=== PATIENT | female | born 1995 | race African-American/Black ===

== ENCOUNTER 2023-06-14 23:45 | Inpatient (IN) | payer OTHER ==
[~2023-06-14] VITALS: Ht 165.1 cm; Wt 75.9 kg
[2023-06-14] MEDS ORDERED: PROPOFOL 1,000 MG/100 ML VIAL As Ordered ONE (23:53)
[2023-06-15] VITALS (15 sets, daily range): BP systolic 83–122; BP diastolic 44–74; TEMP 95.4–99.5; O2SAT 100
[2023-06-15] MEDS: NS 1,000 ML IV ONE
[2023-06-15 00:24] LABS: ABG BASE EXCESS -9.9 (-2.0-2.0); ABG HCO3 15.7 MMOL/L (22.0-26.0); ABG O2 SATURATION 98.8 % (95.0-99.0); ABG PARTIAL PRESSURE CO2 33.3 mmHg (35.0-45.0); ABG PARTIAL PRESSURE O2 192.1 mmHg (75.0-100.0); ABG STANDARD HCO3 16.6 MMOL/L. (22.0-26.0); ABG TOTAL CO2 16.7 MMOL/L (22.0-29.0)
[2023-06-15] MEDS: ETOMIDATE INJ 20MG/10ML VIAL IV ONE (00:30)
[2023-06-15] MEDS: ROCURONIUM BROMIDE 50MG/5ML VIAL IV ONE (00:30)
[2023-06-15] MEDS: propofoL 1,000 MG in IV 1 EA IV SCH ×2 (00:45→06:39)
[2023-06-15 00:46] LABS: AMPHETAMINES LEVEL URINE NEGATIVE (NEGATIVE)
[2023-06-15 00:47] LABS: BARBITURATES URINE NEGATIVE (NEGATIVE); BASO % 0.4 % (0.0-1.0); COCAINE METABOLITE URINE NEGATIVE (NEGATIVE); EOS # 0.1 10^3/uL (0.0-0.5); EOS % 0.9 % (0.0-3.0); HEMATOCRIT 33.5 % (36.0-47.0); HEMOGLOBIN 11.1 g/dl (12.0-15.5); LYMPH # 1.6 10^3/uL (1.5-5.0); LYMPH % 24.5 % (24.0-44.0); MEAN CORPUSCULAR HEMOGLOBIN 30.3 pg (27.0-33.0); MEAN CORPUSCULAR HGB CONC 33.1 g/dl (32.0-36.5); MEAN CORPUSCULAR VOLUME 91.5 fl (80.0-96.0); METHADONE URINE NEGATIVE (NEGATIVE); MONO # 0.4 10^3/uL (0.0-0.8); MONO % 5.2 % (2.0-8.0); NEUTROPHILS # 4.6 10^3/uL (1.5-8.5); NEUTROPHILS % 68.7 % (36.0-66.0); OPIATES URINE NEGATIVE (NEGATIVE); PHENCYCLIDINE URINE NEGATIVE (NEGATIVE); RED BLOOD COUNT 3.66 10^6/uL (4.00-5.40); WHITE BLOOD COUNT 6.7 10^3/uL (4.0-10.0)
[2023-06-15 00:48] LABS: BENZODIAZEPINES URINE POSITIVE (NEGATIVE); CANNABINOIDS URINE POSITIVE (NEGATIVE)
[2023-06-15] MEDS: ROCURONIUM BROMIDE 50MG/5ML VIAL IV PRN (01:04)
[2023-06-15 01:06] LABS: ETHYL ALCOHOL (ETHANOL) 0.219 % (0.000-0.010)
[2023-06-15 01:07] LABS: SALICYLATE LEVEL < 3.0 MG/DL (<30)
[2023-06-15 01:08] LABS: ALBUMIN 3.9 G/DL (3.2-5.2); ALKALINE PHOSPHATASE 52 U/L (46-116); ALT/SGPT 17 U/L (7.0-40); AST/SGOT 20 U/L (<34); BILIRUBIN,DIRECT < 0.1 MG/DL (<0.4); BILIRUBIN,TOTAL 0.4 MG/DL (0.3-1.2); BLOOD UREA NITROGEN 10 MG/DL (9-23); CALCIUM LEVEL 7.9 MG/DL (8.5-10.1); CARBON DIOXIDE LEVEL 16 MMOL/L (20-31); CHLORIDE LEVEL 110 MMOL/L (98-107); CK-MB VALUE MASS 1.4 NG/ML (<3.6); CREATININE FOR GFR 0.75 MG/DL (0.55-1.30); GLOMERULAR FILTRATION RATE > 60.0 (>60); GLUCOSE, FASTING 92 MG/DL (60-100); POTASSIUM SERUM 3.8 MMOL/L (3.5-5.1); SODIUM LEVEL 141 MMOL/L (136-145); TOTAL PROTEIN 6.8 G/DL (5.7-8.2)
[2023-06-15] MEDS: DEXMEDETOMIDINE IV ONE (01:10)
[2023-06-15] MEDS: BOOSTRIX VACCINE (TETANUS/DIPHTH/ACEL. PERTUSSIS) 0.5ML SYR IM ONE (01:20)
[2023-06-15 01:25] LABS: CPK CREATINE PHOSPHOKINASE 238 U/L (34-145); MB/CK RELATIVE INDEX 0.58 (< OR =4)
[2023-06-15] MEDS: dexmedeTOMidine 200 MCG in IV 1 EA IV SCH (01:31)
[2023-06-15 01:38] LABS: ABG BASE EXCESS -7.6 (-2.0-2.0); ABG HCO3 16.1 MMOL/L (22.0-26.0); ABG O2 SATURATION 98.2 % (95.0-99.0); ABG PARTIAL PRESSURE CO2 27.7 mmHg (35.0-45.0); ABG PARTIAL PRESSURE O2 137.1 mmHg (75.0-100.0); ABG STANDARD HCO3 18.3 MMOL/L. (22.0-26.0); ABG pH (ARTERIAL) 7.383 UNITS (7.350-7.450)
[2023-06-15] MEDS ORDERED: MIDAZOLAM 5MG/ML 1ML VIAL As Ordered ONE (01:57)
[2023-06-15] MEDS: MIDAZOLAM INJ 2MG/2ML VIAL IV ONE ×2 (02:00→03:25)
[2023-06-15] MEDS: ceFAZolin SOD 2 GM in IV 1 EA IV ONE (02:22)
[2023-06-15] MEDS ORDERED: ISOVUE-370 76% 100ML VIAL As Ordered ONE (02:52)
[2023-06-15] MEDS: MIDAZOLAM 100MG/100ML-0.9%NACL 100 MG in IV 1 EA IV SCH ×2 (03:30→06:37)
[2023-06-15] MEDS ORDERED: HOME MED LIST COMPLETE! XX SCH (05:35)
[2023-06-15] MEDS: MIDAZOLAM INJ 2MG/2ML VIAL IV PRN ×2 (05:39→08:47)
[2023-06-15] MEDS: PIPERACILLIN/TAZOBACTAM SOD 4.5 GM in D5W MINI-BAG PLUS 50 ML IV SCH (05:59)
[2023-06-15] MEDS: ENOXAPARIN 40MG/0.4ML SYRINGE (J1650 PER 10MG) SC SCH (08:35)
[2023-06-15 13:17] LABS: BLOOD UREA NITROGEN 8 MG/DL (9-23); CALCIUM LEVEL 7.8 MG/DL (8.5-10.1); CARBON DIOXIDE LEVEL 23 MMOL/L (20-31); CHLORIDE LEVEL 114 MMOL/L (98-107); CREATININE FOR GFR 0.73 MG/DL (0.55-1.30); GLOMERULAR FILTRATION RATE > 60.0 (>60); GLUCOSE, FASTING 90 MG/DL (60-100); POTASSIUM SERUM 3.7 MMOL/L (3.5-5.1); SODIUM LEVEL 143 MMOL/L (136-145)
[2023-06-15] MEDS: MULTIVITAMIN -ADULT INJECTION 10 ML, THIAMINE INJection 100 MG, FOLIC ACID 1 MG in NS 1... IV ONE (14:41)
[2023-06-15 17:35] LABS: PLATELET COUNT, AUTOMATED 235 10^3/uL (150-450)
== END 2023-06-15 18:47 | disposition home or self-care (01) | DRG 133 ==
LOC: M ED 23:45 → M ED INP 06-15 05:02 → M ICU 06-15 06:01
PROVIDERS: ADMIT Internal Medicine Pulmonary Disease; ATTEND Student in an Organized Health Care Education/Training Program
DX: J96.00 Acute respiratory failure, unspecified whether with hypoxia or hypercapnia (principal); I27.20 Pulmonary hypertension, unspecified; R00.1 Bradycardia, unspecified; G43.909 Migraine, unspecified, not intractable, without status migrainosus; F12.90 Cannabis use, unspecified, uncomplicated; F10.129 Alcohol abuse with intoxication, unspecified; S61.512A Laceration without foreign body of left wrist, initial encounter; X83.8XXA Intentional self-harm by other specified means, initial encounter; Y92.009 Unspecified place in unspecified non-institutional (private) residence as the place of occurrence of the external cause